=== PATIENT | female | born 1955 | race Caucasian/White ===

== ENCOUNTER 2020-04-04 04:20 | Inpatient (IN) | payer OTHER ==
[~2020-04-04] VITALS: Ht 157.5 cm; Wt 58.5 kg
[2020-04-04] MEDS ORDERED: IBUP600 PO (04:35)
[2020-04-04 05:22] LABS: BASOPHILS PERCENT AUTO 1 % (0-2); EOSINOPHILS PERCENT AUTO 1 % (0-6); Hematocrit 42.3 % (33.0-51.0); Hemoglobin 13.7 g/dL (11.5-16.0); IMMATURE GRAN ABSOLUTE AUTO 0.07 K/mm3 (0.00-0.10); IMMATURE GRAN PERCENT AUTO 0 % (0-1); LYMPHOCYTES ABSOLUTE AUTO 2.35 K/mm3 (0.84-5.20); LYMPHOCYTES PERCENT AUTO 14 % (21-46); MONOCYTES ABSOLUTE AUTO 1.06 K/mm3 (0.16-1.47); MONOCYTES PERCENT AUTO 6 % (4-13); Mean Corpuscular HGB 27.8 pg (26.0-34.0); Mean Corpuscular HGB Conc 32.4 g/dL (31.5-36.5); Mean Corpuscular Volume 86 fL (80-100); Mean Platelet Volume 8.7 fL (9.1-12.4); NEUTROPHILS ABSOLUTE AUTO 13.12 K/mm3 (1.96-9.15); NEUTROPHILS PERCENT AUTO 78 % (41-73); Platelet Count 521 K/mm3 (150-400); RDW Coefficient Variation 11.8 % (11.7-14.2); RDW Standard Deviation 37.4 fL (35.1-46.3); Red Blood Cell Count 4.93 M/mm3 (3.80-5.20)
[2020-04-04 05:35] LABS: International Normalized Ratio 1.12; Prothrombin Time Results 11.9 Sec (9.7-11.5)
[2020-04-04 05:44] LABS: Alanine Aminotransfer (ALT/SGP 72 U/L (12-78); Albumin, Blood 2.7 g/dL (3.4-5.0); Albumin/Globulin Ratio 0.5 (0.8-1.8); Alk Phos 366 U/L (50-136); Anion Gap 10 mmol/L (6-16); Aspartate Aminotrans (AST/SGOT 57 U/L (12-37); Bilirubin, Total 0.3 mg/dL (0.1-1.0); Blood Urea Nitrogen 35 mg/dL (8-24); Bun/Creatinine Ratio 43.1 (12.0-20.0); CO2, Blood 24 mmol/L (21-32); Calcium, Blood 9.5 mg/dL (8.5-10.1); Chloride, Blood 102 mmol/L (98-108); Creatinine, Blood 0.81 mg/dL (0.40-1.00); Globulin, Blood 5.2 g/dL (2.2-4.0); Glomerular Filtration Rate >60 (60-); Glucose, Blood 159 mg/dL (70-99); Potassium, Blood 2.8 mmol/L (3.5-5.5); Sodium, Blood 136 mmol/L (136-145); Total Protein, Blood 7.9 g/dL (6.4-8.2)
[2020-04-04 10:46] LABS: Influenza A, PCR Negative (NEGATIVE); Influenza B, PCR Negative (NEGATIVE); Resp Syncytial Virus, PCR Negative (NEGATIVE); SARS-Cov-2 (COVID-19) PCR, MMC Negative (NEGATIVE)
--- NOTE | 2020-04-04 11:34 | NUR ---
PT TO PRE OP
--- NOTE | 2020-04-04 12:15 | NUR ---
2ND IV TO LT HAND , PATENT AND SKIN INTEGRITY INTACT PT ALERT AND ORIENTED ON ARRIVAL TO [facility]. WAIVER COMPLETED FOR PT TO KEEP W[place]DING BAND ON. PT TRACTION SPLINT IN PLACE ON ARRIVAL. POTASSIUM STOPPED JUST PRIOR TO SURGERY PER DR. ALVAREZ. IV PUMP AND ADDITIONAL K+ DOSES RETURNED TO SURGICAL UNIT
--- NOTE | 2020-04-04 13:16 | NUR ---
echocardiogram complete
--- NOTE | 2020-04-04 14:55 | NUR ---
PT ARRIVED TO UNIT FROM PACU ALERT AND ORIENTED, REPORTS SLEEPY. DENIES PAIN. MEDICATED PER ORDERS FOR NAUSEA. DRESSING TO ANTERIOR HIP AND COLLEEN WRAP TO RLE CDI. SPOUSE AT BEDSIDE.
--- NOTE | 2020-04-04 18:04 | NUR ---
SUMMARY NO ACUTE CHANGES SINCE ARRIVING TO FLOOR FROM PACU. SPOUSE SPENDING NIGHT DUE TO PT'S ANXIETY AND AGOROPHOBIA. PT DENIES PAIN OR N/V AT THIS TIME. USING URINAL FROM HOME, VOIDING WELL. CALL LIGHT IN REACH.
--- NOTE | 2020-04-04 22:21 | NUR ---
TXA PER DAY SHIFT RN, PT RECIEVED SECOND DOSE TXA AT 1525.
[2020-04-05 00:04] LABS: Bilirubin, Urine Neg (Neg); Blood, Urine Neg (Neg); Glucose Qualitative, Urine Neg (Neg); Ketones, Urine Neg (Neg); Leukocyte Esterase, Urine 1+ (Neg); Nitrite, Urine Neg (Neg); Protein, Urine 1+ (Neg); Urobilinogen, Urine NORM (Normal)
[2020-04-05 00:24] LABS: Appearance, Urine Hazy (Clear); Color, Urine Yellow (P-Yellow)
[2020-04-05 00:25] LABS: Bacteria Rare /hpf; Red Blood Cells, Urine Not Seen /hpf (0-2); Squamous Epithelial Cells Not Seen /hpf (Few); WBC Cast 0-2 /lpf (0)
[2020-04-05 04:26] LABS: BASOPHILS ABSOLUTE AUTO 0.02 K/mm3 (0.00-0.23); BASOPHILS PERCENT AUTO 0 % (0-2); EOSINOPHILS PERCENT AUTO 0 % (0-6); Hematocrit 34.9 % (33.0-51.0); Hemoglobin 11.2 g/dL (11.5-16.0); IMMATURE GRAN ABSOLUTE AUTO 0.07 K/mm3 (0.00-0.10); IMMATURE GRAN PERCENT AUTO 0 % (0-1); LYMPHOCYTES ABSOLUTE AUTO 1.39 K/mm3 (0.84-5.20); LYMPHOCYTES PERCENT AUTO 8 % (21-46); MONOCYTES ABSOLUTE AUTO 1.13 K/mm3 (0.16-1.47); MONOCYTES PERCENT AUTO 7 % (4-13); Mean Corpuscular HGB 27.6 pg (26.0-34.0); Mean Corpuscular HGB Conc 32.1 g/dL (31.5-36.5); Mean Corpuscular Volume 86 fL (80-100); Mean Platelet Volume 8.8 fL (9.1-12.4); NEUTROPHILS ABSOLUTE AUTO 14.03 K/mm3 (1.96-9.15); NEUTROPHILS PERCENT AUTO 84 % (41-73); Platelet Count 462 K/mm3 (150-400); RDW Coefficient Variation 12.1 % (11.7-14.2); RDW Standard Deviation 38.4 fL (35.1-46.3); Red Blood Cell Count 4.06 M/mm3 (3.80-5.20); White Blood Cell Count 16.64 K/mm3 (4.00-11.30)
[2020-04-05 04:41] LABS: Anion Gap 5 mmol/L (6-16); Blood Urea Nitrogen 33 mg/dL (8-24); Bun/Creatinine Ratio 41.2 (12.0-20.0); CO2, Blood 29 mmol/L (21-32); Calcium, Blood 9.5 mg/dL (8.5-10.1); Chloride, Blood 106 mmol/L (98-108); Glomerular Filtration Rate >60 (60-); Glucose, Blood 112 mg/dL (70-99); Magnesium, Blood 2.2 mg/dL (1.6-2.4); Potassium, Blood 3.4 mmol/L (3.5-5.5); Sodium, Blood 140 mmol/L (136-145)
--- NOTE | 2020-04-05 05:06 | NUR ---
SHIFT SUMMARY PT A/O X4. S/P R HIP SURGERY. COLLEEN IN PLACE TO RLE AND SURG DRESSING UPPER HIP/THIGH BOTH CDI OVERNIGHT. PT HAS DENIED PAIN AT REST AND DENIED NEED FOR PAIN MEDICATION. PT HAS BEEN HESITANT TO REPOSITION MUCH IN BED SHE IS COMFORTABLE AND WORRIED ABOUT PAIN. EDUCATION AND REASSURANCE PROVIDED. PT IS TOLERATING PO INTAKE AND VOIDING. AT BEDSIDE OVERNIGHT. TELE IN PLACE OVERNIGHT - SEE RHYTHM STRIPS IN CHART. PT RESTING AT THIS TIME WITH CALL LIGHT IN REACH.
--- NOTE | 2020-04-05 20:02 | NUR ---
SHIFT SUMMARY POD1 R NAILING, A/O X4, VSS, PT VERY ANXIOUS, DOES WELL WITH DETAILED EXPLANATIONS OF ALL MEDICATIONS AND PROCEDURES, ATIVAN ADDED TODAY, GAVE PT 1MG PER ORDER IN WHICH PT DID WELL WITH. PT CLEARED BY SURGEON AND HOSPITALIST BUT NOT THERAPY, MAY DISCHARGE TOMORROW. TTWB ON R SIDE. PT CAN MOVE IN BED BUT GOES VERY SLOWLY DUE TO ANXIETY. DENIES PAIN AT REST. AT BEDSIDE WHICH IS VERY BENEFICIAL TO PT WITH ANXIETY. CALL LIGHT IN REACH, REPORT GIVEN TO TY CHEEMA.
--- NOTE | 2020-04-06 05:20 | NUR ---
SHIFT SUMMARY PT HAS BEEN A/O X4. SHE HAS ONLY WANTED TYLENOL X1 FOR PAIN OVERNIGHT. PT VOIDING USING PERSONAL FEMALE URINAL WITH HELP FROM . TOLERATING PO INTAKE W/O NAUSEA. REPOSITIONED TOLERATED. PT HAS ALSO DONE LEG EXERCISES IN BED BUT REFUSED SITTING ON EDGE OF BED OR STANDING IN ROOM. PT EXPRESSED ANXIETY ABOUT THE POSSIBILITY OF BEING DC'D TODAY. AROUND 0100 PT REQUESTED TO BE ALLOWED TO SLEEP WITHOUT BEING AWOKEN FOR A FEW HOURS. STAYED THE NIGHT WITH PT AND HAS BEEN ASSISTING WITH CARE. PT RESTING AT THIS TIME WITH CALL LIGHT IN REACH.
[2020-04-06 05:59] LABS: BASOPHILS ABSOLUTE AUTO 0.08 K/mm3 (0.00-0.23); BASOPHILS PERCENT AUTO 1 % (0-2); EOSINOPHILS ABSOLUTE AUTO 0.12 K/mm3 (0.00-0.68); EOSINOPHILS PERCENT AUTO 1 % (0-6); Hematocrit 32.8 % (33.0-51.0); Hemoglobin 10.6 g/dL (11.5-16.0); IMMATURE GRAN ABSOLUTE AUTO 0.09 K/mm3 (0.00-0.10); IMMATURE GRAN PERCENT AUTO 1 % (0-1); LYMPHOCYTES ABSOLUTE AUTO 2.69 K/mm3 (0.84-5.20); LYMPHOCYTES PERCENT AUTO 19 % (21-46); MONOCYTES ABSOLUTE AUTO 1.44 K/mm3 (0.16-1.47); MONOCYTES PERCENT AUTO 10 % (4-13); Mean Corpuscular HGB 28.1 pg (26.0-34.0); Mean Corpuscular HGB Conc 32.3 g/dL (31.5-36.5); Mean Corpuscular Volume 87 fL (80-100); Mean Platelet Volume 8.8 fL (9.1-12.4); NEUTROPHILS ABSOLUTE AUTO 9.79 K/mm3 (1.96-9.15); NEUTROPHILS PERCENT AUTO 69 % (41-73); Platelet Count 422 K/mm3 (150-400); RDW Coefficient Variation 12.3 % (11.7-14.2); RDW Standard Deviation 39.6 fL (35.1-46.3); Red Blood Cell Count 3.77 M/mm3 (3.80-5.20); White Blood Cell Count 14.21 K/mm3 (4.00-11.30)
[2020-04-06 06:22] LABS: Anion Gap 8 mmol/L (6-16); Blood Urea Nitrogen 28 mg/dL (8-24); Bun/Creatinine Ratio 46.3 (12.0-20.0); CO2, Blood 28 mmol/L (21-32); Calcium, Blood 9.1 mg/dL (8.5-10.1); Chloride, Blood 105 mmol/L (98-108); Creatinine, Blood 0.61 mg/dL (0.40-1.00); Glomerular Filtration Rate >60 (60-); Glucose, Blood 99 mg/dL (70-99); Potassium, Blood 3.2 mmol/L (3.5-5.5); Sodium, Blood 141 mmol/L (136-145)
--- NOTE | 2020-04-06 11:02 | NUR ---
PT TAKEN TO RADIOLOGY FOR BONE SCAN, WAITING IN WAITING ROOM.
--- NOTE | 2020-04-06 16:16 | NUR ---
SHIFT SUMMARY POD2 NAILING R, A/O X4, VSS W/ HTN (MEDICATING PER ORDERS, SEE EMAR), TOLERATING PO, VOIDING WELL, PASSING FLATUS, ELEVATED ANXIETY W/ CURRENT SITUATION, PT DOES WELL W/ THERAPEUTIC COMMUNICATION/REASSURANCE/THOROUGH EXPLANATIONS OF PROCEDURES/MEDICATIONS. WAITING ON RESULTS OF BONE SCANE/ABD CT. AT BEDSIDE AND IS PROVIDING BENEFICIAL SUPPORT. WILL CONTINUE TO MONITOR AND REPORT TO ONCOMING NOC RN.
--- NOTE | 2020-04-06 21:50 | NUR ---
ASSUMED CARE AT 1900. PT A/O X4. AT BEDSIDE. PT AND SPOUSE REPORT NEW DX OF CANCER TODAY AND COMMUNICATE ANXIETY AND STRESS RELATED TO THIS. PT DENIES NEED FOR PAIN OR ANXIETY MEDICATION AT THIS TIME. REPOSTIONED IN BED. RESTING AT THIS TIME WITH CALL LIGHT IN REACH.
[2020-04-07 06:18] LABS: BASOPHILS ABSOLUTE AUTO 0.07 K/mm3 (0.00-0.23); BASOPHILS PERCENT AUTO 1 % (0-2); EOSINOPHILS ABSOLUTE AUTO 0.11 K/mm3 (0.00-0.68); EOSINOPHILS PERCENT AUTO 1 % (0-6); Hematocrit 31.6 % (33.0-51.0); Hemoglobin 10.1 g/dL (11.5-16.0); IMMATURE GRAN ABSOLUTE AUTO 0.09 K/mm3 (0.00-0.10); IMMATURE GRAN PERCENT AUTO 1 % (0-1); LYMPHOCYTES ABSOLUTE AUTO 2.74 K/mm3 (0.84-5.20); LYMPHOCYTES PERCENT AUTO 19 % (21-46); MONOCYTES ABSOLUTE AUTO 1.76 K/mm3 (0.16-1.47); MONOCYTES PERCENT AUTO 12 % (4-13); Mean Corpuscular HGB 27.7 pg (26.0-34.0); Mean Corpuscular Volume 87 fL (80-100); Mean Platelet Volume 8.8 fL (9.1-12.4); NEUTROPHILS ABSOLUTE AUTO 9.54 K/mm3 (1.96-9.15); NEUTROPHILS PERCENT AUTO 67 % (41-73); Platelet Count 405 K/mm3 (150-400); RDW Standard Deviation 38.9 fL (35.1-46.3); Red Blood Cell Count 3.64 M/mm3 (3.80-5.20); White Blood Cell Count 14.31 K/mm3 (4.00-11.30)
[2020-04-07 06:35] LABS: Anion Gap 7 mmol/L (6-16); Blood Urea Nitrogen 18 mg/dL (8-24); Bun/Creatinine Ratio 32.4 (12.0-20.0); CO2, Blood 28 mmol/L (21-32); Calcium, Blood 9.2 mg/dL (8.5-10.1); Chloride, Blood 102 mmol/L (98-108); Creatinine, Blood 0.56 mg/dL (0.40-1.00); Glomerular Filtration Rate >60 (60-); Glucose, Blood 103 mg/dL (70-99); Potassium, Blood 3.4 mmol/L (3.5-5.5); Sodium, Blood 137 mmol/L (136-145)
--- NOTE | 2020-04-07 06:49 | NUR ---
SHIFT SUMMARY PT A/O X4. AT BEDSIDE OVERNIGHT. PT HAS HAD ANXIETY OVER NEW DX BUT DECLINED MEDICATION OVERNIGHT. REPOSITIONED PRN. ASSISTING WITH CARE. PT DID NOT WANT TO GET UP OR OUT OF BED OVERNIGHT BUT DID DO EXERCISES IN BED. REPORTED MILD PAIN ONCE AND TOOK TYLENOL PER ORDER. TOLERATING PO INTAKE AND VOIDING. PLAN IS TO D/C HOME TODAY. RESTING AT THIS TIME. VSS.
[2020-04-07] MEDS ORDERED: ACET325 PO (10:14)
[2020-04-07] MEDS ORDERED: BISA5EC PO (10:15)
[2020-04-07] MEDS ORDERED: BISA10S PR (10:15)
[2020-04-07] MEDS ORDERED: XARELTO15 MG PO (10:16)
[2020-04-07] MEDS ORDERED: DOCU100 PO (10:16)
[2020-04-07] MEDS ORDERED: Norco 7.5-3251 EACH PO (10:17)
[2020-04-07] MEDS ORDERED: HYDRA50 PO (10:18)
[2020-04-07] MEDS ORDERED: Ativan1 MG PO (10:18)
[2020-04-07] MEDS ORDERED: METO10 PO (10:19)
[2020-04-07] MEDS ORDERED: METO25 PO (10:19)
[2020-04-07] MEDS ORDERED: ONDA4ODT PO (10:20)
[2020-04-07] MEDS ORDERED: SENN187 PO (10:21)
--- NOTE | 2020-04-07 19:13 | NUR ---
DISCHARGE SUMMARY POD3 ORIF, A/O X4, VSS. PT HAS HIGH ANXIETY AND PAIN W/ MOVING AND TRANSFERRING, GAVE ATIVAN AND PAIN MEDS FOR PT COMFORT (SEE EMAR). TOLERATING PO, VOIDING WELL, BM TODAY, NON AMBULATORY ON BEDREST. DISCUSSED DISCHARGE INSTRUCTIONS W/ PT AND SO. REVIEWED POST OP INSTRUCTION/HOME CARE, FOLLOW UP APPOINTMENTS/CARE. GAVE HARD SCRIPTS TO SO TO HAVE FILLED PRIOR TO DC. PT DID WELL W/ TRANSFERRING TO TRANSPORT. PT LEFT UNIT W/ ALL PERSONAL POSSESSIONS, IV DC'D, NO OTHER IV ACCESS DEVICES IN PLACE.
--- NOTE | 2020-04-08 09:34 | NUR ---
04/08/20 0934 Cecilia Barrera VERIFICATIONS: EDIT CHART.
[2020-04-08 12:09] LABS: BETA-2 MICROGLOBULIN, SERUM 2.6 mg/L (0.6-2.4)
[2020-04-08 14:09] LABS: A/G RATIO 0.8 (0.7-1.7); ALBUMIN 2.7 g/dL (2.9-4.4); ALPHA-1-GLOBULIN 0.5 g/dL (0.0-0.4); ALPHA-2-GLOBULIN 0.9 g/dL (0.4-1.0); GAMMA GLOBULIN 1.1 g/dL (0.4-1.8); GLOBULIN, TOTAL 3.5 g/dL (2.2-3.9); M-SPIKE Not Observed g/dL (Not Observed); PROTEIN, TOTAL, SERUM 6.2 g/dL (6.0-8.5)
[2020-04-08 15:10] LABS: A/G RATIO 0.9 (0.7-1.7); ALBUMIN 2.9 g/dL (2.9-4.4); ALPHA-1-GLOBULIN 0.4 g/dL (0.0-0.4); ALPHA-2-GLOBULIN 0.8 g/dL (0.4-1.0); BETA GLOBULIN 1.1 g/dL (0.7-1.3); GAMMA GLOBULIN 1.1 g/dL (0.4-1.8); GLOBULIN, TOTAL 3.4 g/dL (2.2-3.9); IMMUNOGLOBULIN A, QN, SERUM 242 mg/dL (87-352); IMMUNOGLOBULIN G, QN, SERUM 1187 mg/dL (586-1602); IMMUNOGLOBULIN M, QN, SERUM 94 mg/dL (26-217); M-SPIKE Not Observed g/dL (Not Observed); PROTEIN, TOTAL, SERUM 6.3 g/dL (6.0-8.5)
== END 2020-04-07 18:45 | disposition home or self-care (01) | DRG 481 ==
LOC: ER 04:20 → SURS 06:36
PROVIDERS: Emergency Medicine; Family Medicine; Internal Medicine Hematology & Oncology; Orthopaedic Surgery; ADMIT Internal Medicine
PROC: 0QS834Z Reposition Right Femoral Shaft with Internal Fixation Device, Percutaneous Approach (ICD-10-PCS; principal; 2020-04-04 12:30)
DX: M84.451A Pathological fracture, right femur, initial encounter for fracture (principal); C41.3 Malignant neoplasm of ribs, sternum and clavicle; C79.51 Secondary malignant neoplasm of bone; D62 Acute posthemorrhagic anemia; Z20.828 Contact with and (suspected) exposure to other viral communicable diseases; E86.0 Dehydration; E87.6 Hypokalemia; F41.8 Other specified anxiety disorders; I44.7 Left bundle-branch block, unspecified; M84.551A Pathological fracture in neoplastic disease, right femur, initial encounter for fracture; M89.78 Major osseous defect, other site; Z74.01 Bed confinement status; C50.919 Malignant neoplasm of unspecified site of unspecified female breast; I10 Essential (primary) hypertension
CPT/HCPCS: 0241U; 36415; 71045; 71260; 72170; 73552; 74177; 78306; 80048; 80053; 81001; 82232; 82378; 82784; 83605; 83615; 83735; 83883; 84132; 84145; 84155; 84165; 84439; 84443; 85025; 85610; 85730; 86334; 86850; 86900; 86901; 88305; 88311; 88341; 88342; 93005; 93010; 93306; 96365-59; 96375-59; 96376; 97110; 97162; 97166; 97530; 97535; 99285-25; A9270; A9270-GY; A9503; C1713; J0690; J1100; J1170; J1650; J2250; J2370; J2405; J2704; J3010; J3480; J7030; J7120; Q9967